=== PATIENT | female | born 1965 | race Caucasian/White ===

== ENCOUNTER 2021-12-04 18:20 | Emergency (ER) | payer OTHER, MEDICAID, SELFPAY ==
[2021-12-04 18:25] VITALS: BP 130/93; PULSE 86; RESP 16; TEMP 36.6; O2SAT 99
--- NOTE | 2021-12-04 18:30 | DI.CT_ITS ---
Exam(s) CT HEAD CERVICAL SPINE WO EXAM: CT HEAD CERVICAL SPINE WO CLINICAL HISTORY: fall, hit head, r/o acute process. TECHNIQUE: Imaging Protocol: Axial computed tomography images with coronal and sagittal reformatted images were created and reviewed COMPARISON: No exams were available for comparison FINDINGS: CT Head: Ventricles and Extra axial spaces: Normal in size and morphology for the patient's age. Hemorrhage: None. Cerebral parenchyma: No evidence of an acute territorial infarct. Midline shift: None. Brainstem/Cerebellum: Normal. Calvarium: Normal. Visualized Paranasal sinuses/Mastoids: Clear. Soft Tissues: Unremarkable. CT Cervical Spine: Bones: No acute fracture or subluxation. Mild degenerative changes in the cervical spine. Soft Tissues: Unremarkable. Lung Apices: Clear. IMPRESSION: 1. No acute intracranial process. 2. No acute fracture or subluxation in the cervical spine. RADIATION DOSE DELIVERED: 1,493.82mGy.cm Total DLP DATA REPOSITORY: All CT scans at this facility are submitted to the National Radiology Data Registry (NRDR) Dose Index Registry (DIR) with the [employer] (A[employer]). RADIATION OPTIMIZATION: All CT scans at this facility use at least one of these dose optimization te chniques: automated exposure control; mA and/or kV adjustment per patient size (includes targeted exa ms where dose is matched to clinical indication); or iterative reconstruction.
--- NOTE | 2021-12-04 18:30 | DI.RAD_ITS ---
Exam(s) XR KNEE LT 3V AP,LAT,[place]ON[place] EXAM: XR KNEE LT 3V AP,LAT,[place] CLINICAL HISTORY: fall onto L knee, r/o fx. TECHNIQUE: 2D digital imaging was performed of the left knee. Three images were obtained. AP, late ral and PA tunnel views were obtained. COMPARISON: No exams were available for comparison FINDINGS: BONES: No acute fracture is present. No bony destructive lesion is seen. JOINTS: The knee is normally aligned. No joint effusion is seen. Mild degenerative changes are seen i n the knee. SOFT TISSUE: Normal. IMPRESSION: No acute fracture or dislocation. DATA REPOSITORY: RADIATION DOSE DELIVERED:
--- NOTE | 2021-12-04 18:43 | W.ED.GENAD ---
Discharge Plan Disposition Patient Disposition: HOME Condition: Stable Discharge Details Clinical Impression: Contusion of left knee, Closed head injury without loss of consciousness Primary Care Provider: Joslyn Middleton ED Provider: Pauly Clemente Home Meds and New Rx's Prescriptions: Continued levetiracetam [Keppra] 500 mg Tablet 1,500 mg PO BID lamotrigine 25 mg Tablet 75 mg PO BID losartan 100 mg Tablet 80 mg PO DAILY Eliquis 5 mg Tablet 5 mg PO BID Discharge Instructions Instructions: Head Injury (ED), Contusion in Adults (ED) Additional Instructions: Your imaging today is reassuring and shows no evidence of acute concerning or significant findings. Rest ice and elevate your left knee as much as possible. Take Tylenol as needed and directed for pain. Follow-up with your primary care doctor in 1 week and for referral to orthopedics if needed. Return to the emergency department with any worsening or new concerning symptoms. Referrals: Case Mehta MD [ [facility] STAFF PHYSICIAN] - Discharge Data Discharge Date/Time-TO BE ENTERED AT DEPARTURE: 12/04/21 20:21 Discharge Physician: Pauly Clemente Medical Decision Making 56-year-old female with a history of atrial fibrillation on Eliquis, seizures, hypertension, pulmonary embolism who presents with left knee pain and headache after mechanical fall at the movies today. Patient has tenderness to palpation to her left anterior knee and proximal anterior tibia with no deformity or ligamentous laxity. She has no evidence of head trauma and no midline cervical spine tenderness. She has no focal deficits. Patient given a dose of Tylenol and referred for CT head and cervical spine which was negative for acute findings and knee x-ray which was negative for fracture. Dickson wrap placed to the left knee. Patient advised to increase fluids, rest, take Tylenol as needed and directed for pain. Advised on limiting screen time as this may worsen headache. Advised to follow up with the primary care doctor for re-evaluation. Usual and customary return precautions given prior to discharge. Medical Records Medical records reviewed: Yes I reviewed the patient's medical records. Imaging Data Radiologic Study: Radiologist's impression: CT Head Without Contrast Exam date and time: 12/04/2021 6:55 PM Age: 56 years old Clinical indication: Injury or trauma; Blunt trauma (contusions or hematomas); Patient HX: Fall, hit head; R/O acute process TECHNIQUE: Imaging protocol: Computed tomography of the head without contrast. COMPARISON: No relevant prior studies available. FINDINGS: Brain: Normal. No hemorrhage. Unremarkable white matter. No mass effect. Cerebral ventricles: No ventriculomegaly. Paranasal sinuses: Visualized sinuses are unremarkable. No fluid levels. Mastoid air cells: Visualized mastoid air cells are well aerated. Bones/joints: Unremarkable. No acute fracture. Soft tissues: Unremarkable. IMPRESSION: No acute intracranial abnormality. CT Cervical Spine Without Contrast Exam date and time: 12/04/2021 6:55 PM Age: 56 years old Clinical indication: Injury or trauma; Blunt trauma (contusions or hematomas); Patient HX: Fall, hit head; R/O acute process TECHNIQUE: Imaging protocol: Computed tomography of the cervical spine without contrast. COMPARISON: No relevant prior studies available. FINDINGS: Bones/joints: Mild degenerative changes at C5-C6 and C6-C7, as manifested by decreased intervertebral disc space and anterior osteophytes. There is a small posterior disc osteophyte complex at C5-C6, not causing any significant central canal stenosis, however causing mild bilateral bony neural foraminal stenosis. There is no evidence of acutely displaced skeletal fractures. There is no evidence of joint dislocation. No aggressive osseous lesions. Discs/Spinal canal/Neural foramina: Spinal canal is patent. No other bony neural foraminal stenosis appreciated. Mild degenerative changes of the atlantoaxial joint. Lungs: Lung apices are normal. Soft tissues: Unremarkable. IMPRESSION: No acute skeletal pathology. ?XR Left Knee Exam date and time: 12/04/2021 7:02 PM Age: 56 years old Clinical indication: Other: Fall onto L knee, r/ofx TECHNIQUE: Imaging protocol: Radiologic exam of the Left knee. Views: 3 views. COMPARISON: No relevant prior studies available. FINDINGS: Bones/joints: Three views of the left knee reveal no acute fracture or dislocation. There is prominent loss of joint space in the medial patellofemoral compartment. There is sharpening of the tibial spines. There are osteophytes along the margin of the medial and lateral patellofemoral compartments and along the posterior margin of the patella in keeping with tricompartmental osteoarthritis. Soft tissues: No gross soft tissue abnormality is demonstrated. IMPRESSION: 1. No acute fracture or dislocation seen at the left knee. If there is persistent concern for injury to the knee, MRI could be obtained for additional evaluation. 2. Tricompartmental osteoarthritis. HPI General Mode of arrival: ambulatory. Date/Time Provider Initiated Documentation: 12/04/21 18:21. Limitations to Documentation: no limitations. Information obtained by: patient. HPI Narrative: Patient is a 56-year-old female with a history of hypertension, seizures, pulmonary embolism on Eliquis who presents for left knee pain and headache after fall at the movie today. Patient states she was walking when she tripped and hit her left knee on a carpeted floor. She states she also hit the left side of the top of her head on a metal door. She is admitting to some left-sided and frontal headache. She denies any loss of consciousness, vomiting, neck pain or any other injury Related Data Home Medications Medication Instructions Recorded Confirmed apixaban 5 mg tablet (Eliquis) 5 mg PO BID 12/04/21 12/04/21 lamotrigine 25 mg tablet 75 mg PO BID 12/04/21 12/04/21 levetiracetam 500 mg tablet 1,500 mg PO BID 12/04/21 12/04/21 (Keppra) losartan 100 mg tablet 80 mg PO DAILY 12/04/21 12/04/21 Allergies Allergy/AdvReac Type Severity Reaction Status Date / Time No Known Allergies Allergy Unverified 12/04/21 18:29 General Stated Complaint: Orthopedic SOLO: 4 Review of Systems All systems reviewed & are unremarkable except as noted in HPI and below Constitutional Constitutional: Denies chills, Denies excessive sweating, Denies fatigue, Denies fever(s), Reports headache(s), Denies weakness and Denies weight loss Eyes Eyes: Reports system reviewed and no additional complaints, except as documented and Denies blurry vision ENT Ears, Nose, Mouth, and Throat: Denies vertigo, Denies dizziness, Denies otalgia, Reports headache(s), Denies nasal congestion, Denies sore throat and Denies throat swelling Cardiovascular Cardiovascular: Denies chest pain, Denies syncope, Denies rapid heart rate and Denies dyspnea Respiratory Respiratory: Denies chest congestion, Denies cough, Denies pain on inspiration and Denies dyspnea Gastrointestinal Gastrointestinal: Denies abdominal pain, Denies diarrhea and Denies vomiting Genitourinary Genitourinary: Denies hematuria, Denies dysuria and Denies flank pain Musculoskeletal Musculoskeletal: Denies back pain and Denies joint swelling Comments: Left knee pain Integumentary/Breasts Skin/Breast: Denies lesions and Denies rash Neurologic Neurologic: Denies behavioral changes, Denies confusion, Denies vertigo, Denies dizziness, Denies syncope, Reports headache(s), Denies localized weakness and Denies weakness Psychiatric Psychiatric: Denies behavioral changes, Denies confusion and Denies depression Endocrine Endocrine: Denies excessive sweating and Denies fatigue Hematologic/Lymphatic Hematologic/Lymphatic: Denies easy bruising and Denies lymphadenopathy Allergic/Immunologic Allergic/Immunologic: Denies throat swelling PFSH All Active Problems (Updated 12/04/21 @ 19:58 by Pauly Clemente DO) Contusion of left knee (Acute) Closed head injury without loss of consciousness (Acute) Social History Smoking/Tobacco Use Status: Former Tobacco Use Smoking risk assessment performed?: Yes Alcohol Intake: never Drug use: Never Substance use type: does not use Do you feel safe at home: Yes Do you feel safe in your relationship?: Yes Exam Const General: cooperative, healthy appearing and no acute distress Orientation: alert, awake and oriented x3 HENMT Head: normal to inspection, no palpable skull fracture, normocephalic and atraumatic Ears: hearing grossly normal bilaterally, external ears normal and TM's normal bilaterally General nose exam: external nose normal Face and sinus: normal facial exam Mouth: oral mucosae normal Teeth and gingiva: dentition normal Throat: posterior oropharynx normal Eyes General: appearance normal, both eyes and all related structures Eyelids: eyelids normal Pupils: PERRL EOM: EOM intact bilaterally Neck Neck: normal visual inspection Lymphatic: no lymphadenopathy noted Chest Chest: normal inspection of the chest Resp Effort & Inspection: normal respiratory effort and able to speak in complete sentences Auscultation: clear to auscultation bilaterally Cardio Rate: regular rate Rhythm: regular rhythm GI Inspection: normal to inspection Palpation: soft, not firm, no guarding, no hepatosplenomegaly, no masses and nontender Auscultation: normal bowel sounds Back/Spine/Pelvis Cervical Spine: cervical ROM normal and No cervical spinal tenderness Skin General skin exam: no rashes or lesions noted Neuro General: patient alert, patient awake, patient oriented x3, moves all extremities and no meningeal signs Cranial Nerves: CN's II-XI intact bilaterally Cognition: normal cognition Speech: speech normal Gait: normal gait Motor: muscle tone normal throughout and strength 5/5 throughout Sensory Exam: no sensory deficits noted Extrem General: full ROM and capillary refill normal Knee images: 1. Tenderness to palpation to left anterior knee and left proximal anterolateral tibia. There is no significant pain with valgus or varus stress. Negative anterior and posterior drawer test. There is no edema, ecchymosis, erythema or open wounds. There is no deformity. Psych Appearance: grossly normal Mental Status: mental status grossly normal Speech and Movement: speech and movement normal Affect: normal affect Thought Process: normal Course Vital Signs Vital signs: Vital Signs Temperature 97.9 F 12/04/21 18:25 Pulse 86 12/04/21 18:25 Respiratory Rate 16 12/04/21 18:25 Blood Pressure 130/93 H 12/04/21 18:25 Pulse Oximetry 99 12/04/21 18:25 Temperature 97.9 F 12/04/21 18:25 Temperature Source Temporal Artery Scan 12/04/21 18:25 Pulse 86 12/04/21 18:25 Respiratory Rate 16 12/04/21 18:25 Respiratory Effort 12/04/21 18:28 Blood Pressure 130/93 H 12/04/21 18:25 Blood Pressure Position Sitting 12/04/21 18:25 Pulse Oximetry 99 12/04/21 18:25 Oxygen Delivery Method Room Air 12/04/21 18:25 Oxygen Flow Rate 0 12/04/21 18:25 Pain Level 7 12/04/21 18:32
--- NOTE | 2021-12-04 19:15 | DI.VRAD_ITS ---
PROCEDURE INFORMATION: Exam: CT Head Without Contrast Exam date and time: 12/04/2021 6:55 PM Age: 56 years old Clinical indication: Injury or trauma; Blunt trauma (contusions or hematomas); Patient HX: Fall, hit head; R/O acute process TECHNIQUE: Imaging protocol: Computed tomography of the head without contrast. COMPARISON: No relevant prior studies available. FINDINGS: Brain: Normal. No hemorrhage. Unremarkable white matter. No mass effect. Cerebral ventricles: No ventriculomegaly. Paranasal sinuses: Visualized sinuses are unremarkable. No fluid levels. Mastoid air cells: Visualized mastoid air cells are well aerated. Bones/joints: Unremarkable. No acute fracture. Soft tissues: Unremarkable. IMPRESSION: No acute intracranial abnormality. PROCEDURE INFORMATION: Exam: CT Cervical Spine Without Contrast Exam date and time: 12/04/2021 6:55 PM Age: 56 years old Clinical indication: Injury or trauma; Blunt trauma (contusions or hematomas); Patient HX: Fall, hit head; R/O acute process TECHNIQUE: Imaging protocol: Computed tomography of the cervical spine without contrast. COMPARISON: No relevant prior studies available. FINDINGS: Bones/joints: Mild degenerative changes at C5-C6 and C6-C7, as manifested by decreased intervertebral disc space and anterior osteophytes. There is a small posterior disc osteophyte complex at C5-C6, not causing any significant central canal stenosis, however causing mild bilateral bony neural foraminal stenosis. There is no evidence of acutely displaced skeletal fractures. There is no evidence of joint dislocation. No aggressive osseous lesions. Discs/Spinal canal/Neural foramina: Spinal canal is patent. No other bony neural foraminal stenosis appreciated. Mild degenerative changes of the atlantoaxial joint. Lungs: Lung apices are normal. Soft tissues: Unremarkable. IMPRESSION: No acute skeletal pathology. Dictated and Authenticated by: Wilfred Naranjo MD. Ordering:HUNTER Coats MD
--- NOTE | 2021-12-04 19:56 | DI.VRAD_ITS ---
PROCEDURE INFORMATION: Exam: XR Left Knee Exam date and time: 12/04/2021 7:02 PM Age: 56 years old Clinical indication: Other: Fall onto L knee, r/ofx TECHNIQUE: Imaging protocol: Radiologic exam of the Left knee. Views: 3 views. COMPARISON: No relevant prior studies available. FINDINGS: Bones/joints: Three views of the left knee reveal no acute fracture or dislocation. There is prominent loss of joint space in the medial patellofemoral compartment. There is sharpening of the tibial spines. There are osteophytes along the margin of the medial and lateral patellofemoral compartments and along the posterior margin of the patella in keeping with tricompartmental osteoarthritis. Soft tissues: No gross soft tissue abnormality is demonstrated. IMPRESSION: 1. No acute fracture or dislocation seen at the left knee. If there is persistent concern for injury to the knee, MRI could be obtained for additional evaluation. 2. Tricompartmental osteoarthritis. Dictated and Authenticated by: Matias Morris MD. Ordering:HUNTER Coats MD
== END 2021-12-04 20:21 | disposition home or self-care (01) ==
PROVIDERS: Emergency Provider Physician Assistant; PCP Family Medicine
DX: S80.02XA Contusion of left knee, initial encounter (principal); S09.8XXA Other specified injuries of head, initial encounter; W18.39XA Other fall on same level, initial encounter; I48.91 Unspecified atrial fibrillation; Z79.01 Long term (current) use of anticoagulants
CPT/HCPCS: 73562; 99284; 70450; 72125; 99283

== ENCOUNTER 2021-12-26 08:22 | Emergency (ER) | payer MEDICARE, MEDICAID, SELFPAY ==
--- NOTE | 2021-12-26 08:24 | W.ED.GENAD ---
Discharge Plan Disposition Patient Disposition: HOME Condition: Improving Discharge Details Clinical Impression: Eye foreign body Primary Care Provider: Joslyn Middleton ED Provider: Pola Grullon Home Meds and New Rx's Prescriptions: Continued levetiracetam [Keppra] 500 mg Tablet 1,500 mg PO BID lamotrigine 25 mg Tablet 75 mg PO BID losartan 100 mg Tablet 80 mg PO DAILY Eliquis 5 mg Tablet 5 mg PO BID Discharge Instructions Instructions: Eye Foreign Body (ED) Additional Instructions: Your eye exam reveals a foreign body that was removed with a Q-tip without difficulty. No evidence of corneal abrasion. [id number] artificial tears as directed for symptomatic control. Please watch for new or worsening symptoms and return to the ER for any concerns. If symptoms are to persist greater than 24 hours I recommend following up with your eye care team. Medical Decision Making <CONSUELO Ca - Last Filed: 12/26/21 10:25> 56-year-old female who wears corrective lenses, visual acuity bilaterally 20/25, left eye and right eye both 20/30, presents for concern of foreign body in her right eye. Last night she was on a campfire and wonders if something blew into her eye. Denies pain, visual changes, discharge. No other symptoms. Upon evaluation I was able to visualize a foreign body to her right upper eyelid, no signs of corneal abrasion. Dr. Casas in room to personally evaluate patient, please see his note. The foreign body was removed with a cotton swab without difficulty. Patient tolerated well. No indication to initiate antibiotic therapy or update tetanus status. Standard discharge and return precautions were provided. Patient understands, is agreeable to this plan, and has no additional questions or concerns upon discharge. This documentation was generated using [employer] system, please disregard any oddities of phrase or misspellings. Medical Records Medical records reviewed: Yes I reviewed the patient's medical records. <Handy Casas MD - Last Filed: 12/26/21 10:25> Date: 12/26/21 Time: 10:24 Note: Patient seen, examined, and discussed with CONSUELO Grullon. I agree with treatment plan as discussed/documented. HPI <CONSUELO Ca - Last Filed: 12/26/21 10:25> General Mode of arrival: ambulatory. Date/Time Provider Initiated Documentation: 12/26/21 08:24. Limitations to Documentation: no limitations. Information obtained by: patient. History of Present Illness 56 year old F presents to the emergency department with the chief complaint of R eye FB?, described as mild, with intensity rated at 2. Quality is described as other (Irritation), and is localized to the eyes. Patient reports no radiation. Patient started experiencing this hour(s) (12) and it has been constant. No relieving factors improve symptom(s), Other factors that worsen symptoms (Blinking) . Patient notes no other symptoms.. Patient did receive the following treatments prior to arrival, none and other (Patient wears glasses, no contacts) Related Data Home Medications Medication Instructions Recorded Confirmed apixaban 5 mg tablet (Eliquis) 5 mg PO BID 12/04/21 12/26/21 lamotrigine 25 mg tablet 75 mg PO BID 12/04/21 12/26/21 levetiracetam 500 mg tablet 1,500 mg PO BID 12/04/21 12/26/21 (Keppra) losartan 100 mg tablet 80 mg PO DAILY 12/04/21 12/26/21 Allergies Allergy/AdvReac Type Severity Reaction Status Date / Time No Known Allergies Allergy Unverified 12/26/21 08:49 General SOLO: 4 Review of Systems <CONSUELO Ca - Last Filed: 12/26/21 10:25> Constitutional Constitutional: Denies fever(s) and Denies headache(s) Eyes Eyes: Denies blurry vision, Denies change in vision, Denies diplopia, Denies eye discharge, Reports irritation, Denies eye pain and Reports requires corrective lenses ENT Ears, Nose, Mouth, and Throat: Denies headache(s) and Denies neck pain Musculoskeletal Musculoskeletal: Denies neck pain Integumentary/Breasts Skin/Breast: Denies erythema Neurologic Neurologic: Denies headache(s) PFSH <CONSUELO Ca - Last Filed: 12/26/21 10:25> All Active Problems Contusion of left knee (Acute) Closed head injury without loss of consciousness (Acute) Eye foreign body (Acute) Social History (Reviewed 12/26/21 @ 08:51 by YASH Ca Smoking/Tobacco Use Status: Former Tobacco Use Smoking risk assessment performed?: Yes Alcohol Intake: never Drug use: Never Substance use type: does not use Do you feel safe at home: Yes Do you feel safe in your relationship?: Yes Exam <CONSUELO Ca - Last Filed: 12/26/21 10:25> Const General: cooperative, healthy appearing, comfortable and no acute distress Orientation: alert, awake and oriented x3 HENMT Head: normal to inspection, normocephalic and atraumatic Mouth: moist mucous membranes Eyes General: appearance normal, both eyes and all related structures Alignment and Position: alignment normal Periorbital: periorbital findings normal Eyelids: eyelid abnormality right upper eyelid foreign body Conjunctivae: conjunctivae normal Sclera: sclerae normal Cornea: corneas normal and fluorescein used Pupils: PERRL EOM: EOM intact bilaterally Direct ophthalmoscopy: normal light reflex Neck Neck: normal visual inspection, full ROM, trachea midline and supple Resp Effort & Inspection: normal respiratory effort and able to speak in complete sentences Skin General skin exam: no rashes or lesions noted Neuro General: patient alert, patient awake, moves all extremities and no focal motor deficits Sensory Exam: no sensory deficits noted Psych Appearance: grossly normal Mental Status: mental status grossly normal Procedures <CONSUELO Ca - Last Filed: 12/26/21 10:25> FB Removal Eye Location: eye (R) Topical anesthetic used: tetracaine Foreign body: wood Evidence of corneal penetration: No Technique: cotton tip swab Procedure performed under: direct visualization with magnification Patient tolerated procedure: well
[2021-12-26 08:25] VITALS: BP 142/89; PULSE 84; RESP 18; TEMP 37.1; O2SAT 100
[2021-12-26] MEDS: Tetracaine 0.5% 4 ML BTL (08:59)
[2021-12-26] MEDS: Fluorescein STRIPS 100/BOX 1 MG (08:59)
== END 2021-12-26 09:03 | disposition home or self-care (01) ==
PROVIDERS: Emergency Provider Physician Assistant; PCP Family Medicine
DX: T15.81XA Foreign body in other and multiple parts of external eye, right eye, initial encounter (principal); X58.XXXA Exposure to other specified factors, initial encounter
CPT/HCPCS: 65205